=== PATIENT | female | born 1985 | race Asian ===

== ENCOUNTER 2018-08-04 19:56 | Emergency (ER) | payer OTHER ==
[2018-08-04 20:09] VITALS: BP 110/72; TEMP 98.1
[2018-08-04 21:39] LABS: COLLECTION METHOD CLEAN CATCH
[2018-08-04 21:50] LABS: MUCOUS Present /lpf; PH 6 (5-8); URINE APPEARANCE Clear; URINE BACTERIA None Seen /hpf; URINE BILIRUBIN Negative (NEGATIVE); URINE BLOOD Negative (NEGATIVE); URINE COLOR Yellow; URINE GLUCOSE Negative (NEGATIVE); URINE KETONE Negative (NEGATIVE); URINE LEUKOCYTE ESTERASE Negative (NEGATIVE); URINE NITRATE Negative (NEGATIVE); URINE PROTEIN(semi-quant) Negative (NEGATIVE); URINE RBC None Seen /hpf; URINE UROBILINOGEN Negative (NEGATIVE)
[2018-08-04 22:28] LABS: BASO % 0.7 % (0.0-2.0); EOS # 0.4 (0.0-0.7); EOS % 6.8 % (0-4.0); GRAN # 2.2 (1.4-6.5); GRAN % 38.5 % (42.2-75.2); HEMATOCRIT 34.8 % (37.0-47.0); HEMOGLOBIN 10.9 g/dl (12.5-16.0); LYMPH # 2.6 (1.2-3.4); LYMPH % 44.4 % (20.0-51.0); MEAN CELL VOLUME 81 fl (80.0-100.0); MEAN CORPUSCULAR HEMOGLOBIN 25 pg (27.0-31.0); MEAN CORPUSCULAR HGB CONC 31 g/dl (33.0-37.0); MEAN PLATELET VOLUME 9.9 fl (7.4-10.4); MONO # 0.5 (0.1-0.6); MONO % 9.4 % (1.7-9.3); PLATELET COUNT 267 K/mm3 (130-400); RED BLOOD COUNT 4.29 M/mm3 (4.10-5.30)
[2018-08-04 22:42] LABS: ALANINE AMINOTRANSFERASE 16 U/L (9-52); ALKALINE PHOSPHATASE 80 U/L (50-136); ANION GAP 8 mmol/L (7-16); AST,SGOT 25 U/L (15-37); BILIRUBIN,TOTAL 0.1 mg/dL (0.0-1.0); BLOOD UREA NITROGEN 18 mg/dL (7-17); C-REACTIVE PROTEIN < 0.5 mg/dL (0.0-0.9); CALCIUM 9.2 mg/dL (8.4-10.2); CARBON DIOXIDE 27 mmol/L (22-30); CHLORIDE 104 mmol/L (98-107); CREATININE, serum 0.62 (0.52-1.25); GLUCOSE 91 mg/dL (74-106); POTASSIUM 4.4 mmol/L (3.4-5.0); SODIUM 139 mmol/L (137-145); TOTAL PROTEIN 7.6 gm/dL (6.4-8.2)
[2018-08-05 02:58] VITALS: PULSE 91
[2018-08-08] MEDS ORDERED: FERRO-TIME325 MG (14:48)
== END 2018-08-05 | disposition home or self-care (01) ==
LOC: COL.ER 19:56
PROVIDERS: Nurse Practitioner
DX: R10.30 Lower abdominal pain, unspecified (principal); N89.8 Other specified noninflammatory disorders of vagina; Z98.890 Other specified postprocedural states
CPT/HCPCS: A4216; J0696; J7030

== ENCOUNTER → 2018-08-08 | Emergency (ER) | payer OTHER ==
[~2018-08-08] VITALS: Ht 116 cm; Wt 49.0 kg
[~2018-08-08] MED LIST: FERRO-TIME325 MG
[2018-08-08 12:58] VITALS: BP 109/60; TEMP 97.3
[2018-08-08 14:11] LABS: COLLECTION METHOD CLEAN CATCH
[2018-08-08 14:17] LABS: PH 7 (5-8); SQUAMOUS EPITHELIAL None Seen /hpf; URINE APPEARANCE Clear; URINE BACTERIA None Seen /hpf; URINE BILIRUBIN Negative (NEGATIVE); URINE BLOOD Negative (NEGATIVE); URINE COLOR Straw; URINE GLUCOSE Negative (NEGATIVE); URINE KETONE Negative (NEGATIVE); URINE LEUKOCYTE ESTERASE Negative (NEGATIVE); URINE NITRATE Negative (NEGATIVE); URINE PROTEIN(semi-quant) Negative (NEGATIVE); URINE RBC 0-2 /hpf; URINE UROBILINOGEN Negative (NEGATIVE)
[2018-08-08 14:39] LABS: BASO # 0.1 (0.0-0.2); EOS # 0.4 (0.0-0.7); EOS % 6.1 % (0-4.0); GRAN # 3.2 (1.4-6.5); GRAN % 50.4 % (42.2-75.2); HEMATOCRIT 38.5 % (37.0-47.0); LYMPH # 2.2 (1.2-3.4); LYMPH % 35.3 % (20.0-51.0); MEAN CELL VOLUME 81 fl (80.0-100.0); MEAN CORPUSCULAR HEMOGLOBIN 25 pg (27.0-31.0); MEAN CORPUSCULAR HGB CONC 31 g/dl (33.0-37.0); MEAN PLATELET VOLUME 9.8 fl (7.4-10.4); MONO # 0.4 (0.1-0.6); PLATELET COUNT 314 K/mm3 (130-400); RED BLOOD COUNT 4.77 M/mm3 (4.10-5.30); REDCELL DISTRIBUTION WIDTH-CV 14.8 % (11.5-14.5)
[2018-08-08 14:54] LABS: ALANINE AMINOTRANSFERASE 10 U/L (9-52); ALBUMIN 4.5 gm/dL (3.5-5.0); ALKALINE PHOSPHATASE 84 U/L (50-136); ANION GAP 9 mmol/L (7-16); AST,SGOT 24 U/L (15-37); BILIRUBIN,TOTAL 0.2 mg/dL (0.0-1.0); BLOOD UREA NITROGEN 15 mg/dL (7-17); CALCIUM 9.6 mg/dL (8.4-10.2); CARBON DIOXIDE 30 mmol/L (22-30); CHLORIDE 101 mmol/L (98-107); CREATININE, serum 0.69 (0.52-1.25); GLUCOSE 101 mg/dL (74-106); POTASSIUM 5.3 mmol/L (3.4-5.0); SODIUM 140 mmol/L (137-145); TOTAL PROTEIN 8.3 gm/dL (6.4-8.2)
[2018-08-08 15:08] LABS: C-REACTIVE PROTEIN < 0.5 mg/dL (0.0-0.9)
[2018-08-08 16:00] VITALS: PULSE 84
== END ==
LOC: COL.ER 12:38
PROVIDERS: Nurse Practitioner Primary Care
DX: R10.31 Right lower quadrant pain (principal)

== ENCOUNTER 2019-01-23 13:05 | Emergency (ER) | payer OTHER ==
[~2019-01-23] VITALS: Ht 160 cm; Wt 50.0 kg
[2019-01-23 13:26] VITALS: TEMP 98.4
[2019-01-23 16:30] LABS: BASO % 0.4 % (0.0-2.0); EOS # 0.1 (0.0-0.7); EOS % 1.1 % (0-4.0); GRAN % 69.8 % (42.2-75.2); HEMOGLOBIN 10.6 g/dl (12.5-16.0); LYMPH # 1.6 (1.2-3.4); MEAN CELL VOLUME 77 fl (80.0-100.0); MEAN CORPUSCULAR HEMOGLOBIN 24 pg (27.0-31.0); MEAN CORPUSCULAR HGB CONC 32 g/dl (33.0-37.0); MEAN PLATELET VOLUME 10.6 fl (7.4-10.4); MONO # 0.5 (0.1-0.6); MONO % 6.3 % (1.7-9.3); PLATELET COUNT 253 K/mm3 (130-400); RED BLOOD COUNT 4.36 M/mm3 (4.10-5.30); REDCELL DISTRIBUTION WIDTH-CV 14.3 % (11.5-14.5)
[2019-01-23 16:31] LABS: HEMATOCRIT 33.7 % (37.0-47.0)
[2019-01-23 17:43] LABS: COLLECTION METHOD CLEAN CATCH
[2019-01-23 17:51] LABS: MUCOUS Present /lpf; PH 5 (5-8); URINE APPEARANCE Clear; URINE BACTERIA None Seen /hpf; URINE BILIRUBIN Negative (NEGATIVE); URINE BLOOD 1+ (NEGATIVE); URINE COLOR Yellow; URINE GLUCOSE Negative (NEGATIVE); URINE KETONE Trace (NEGATIVE); URINE LEUKOCYTE ESTERASE Negative (NEGATIVE); URINE NITRATE Negative (NEGATIVE); URINE PROTEIN(semi-quant) Negative (NEGATIVE); URINE RBC 0-2 /hpf; URINE UROBILINOGEN Negative (NEGATIVE)
[2019-01-23 19:00] VITALS: BP 108/60; PULSE 74
== END 2019-01-23 19:34 | disposition home or self-care (01) ==
LOC: COL.ER 13:05
PROVIDERS: Physician Assistant
DX: O26.891 Other specified pregnancy related conditions, first trimester (principal); R10.2 Pelvic and perineal pain; Z3A.13 13 weeks gestation of pregnancy; Z98.890 Other specified postprocedural states

== ENCOUNTER 2019-01-25 17:29 | Outpatient (CLI) | payer OTHER ==
[~2019-01-25] VITALS: Ht 157.5 cm; Wt 50.0 kg
[2019-01-25] VITALS (8 sets, daily range): BP systolic 104–141; BP diastolic 48–75; PULSE 76–95; TEMP 97.5–97.6
--- NOTE | 2019-01-25 17:45 | NUR ---
Patient to room and changed into gown. Patient very tearful, tissues provided. Patient speaks limited danish, but acknowledges and responds to questions. Waiting for to translate.
--- NOTE | 2019-01-25 20:00 | NUR ---
PT TO ROOM VIA BED FOLLOWING D&C, VS STABLE, BLEEDING WNL, PT A&O X3.
--- NOTE | 2019-01-25 22:30 | NUR ---
Pt up to the bathroom with stand-by assist and without complications. Pt was able to void 300ml. Krystal-care done.
--- NOTE | 2019-01-25 23:00 | NUR ---
Discharge instructions and medications reviewed with pt via coat joiner lockstitch. Pt verbalized an understanding, agrees with the plan and states no questions or concerns at this time. Pt waiting for for ride home.
--- NOTE | 2019-01-25 23:30 | NUR ---
Pt still waiting for ride home.
--- NOTE | 2019-01-26 | NUR ---
Pt unable to get a hold of her for transportation home. Pt requesting to stay until morning.
--- NOTE | 2019-01-26 06:05 | NUR ---
Pt discharge home ambulatory and escorted off unit by staff. Pt home via private vehicle. Discharge information reviewed and pt states no questions or concerns at this time.
== END 2019-01-26 06:05 | disposition home or self-care (01) ==
LOC: LDRO 17:29 → OB 17:34 → LDRO 01-26 06:05 → OB 01-26 06:05
DX: O03.9 Complete or unspecified spontaneous abortion without complication (principal); O99.89 Other specified diseases and conditions complicating pregnancy, childbirth and the puerperium; N89.8 Other specified noninflammatory disorders of vagina; R10.30 Lower abdominal pain, unspecified
CPT/HCPCS: OP; J2405; J2704; J3010; J7120

== ENCOUNTER 2019-03-01 19:37 | Emergency (ER) | payer OTHER ==
[~2019-03-01] VITALS: Ht 63 cm; Wt 47.3 kg
[2019-03-01 19:58] VITALS: TEMP 100.5
[2019-03-01] MEDS ORDERED: AMOXICILLIN 8751 TAB PO (20:26)
[2019-03-01 21:08] VITALS: BP 103/70; PULSE 80
== END 2019-03-01 21:15 | disposition home or self-care (01) ==
LOC: COL.ER 19:37
DX: K04.7 Periapical abscess without sinus (principal)

== ENCOUNTER 2019-03-19 22:20 | Emergency (ER) | payer OTHER ==
[~2019-03-19] VITALS: Ht 160 cm; Wt 54.5 kg
[~2019-03-19 22:20] MED LIST changes: +AMOXICILLIN 8751 TAB PO
[2019-03-19 22:22] VITALS: BP 115/78; TEMP 98.1
[2019-03-19 23:15] VITALS: PULSE 89
== END 2019-03-19 23:15 | disposition home or self-care (01) ==
LOC: COL.ER 22:20
DX: S80.01XA Contusion of right knee, initial encounter (principal); S00.31XA Abrasion of nose, initial encounter; Z98.890 Other specified postprocedural states; V43.62XA Car passenger injured in collision with other type car in traffic accident, initial encounter

== ENCOUNTER 2019-03-27 13:40 | Emergency (ER) | payer OTHER ==
[~2019-03-27] VITALS: Ht 160 cm; Wt 50.7 kg
[2019-03-27 14:04] VITALS: BP 112/65; PULSE 72; TEMP 98.4
[2019-03-27 14:24] LABS: COLLECTION METHOD CLEAN CATCH
[2019-03-27 14:32] LABS: MUCOUS Present /lpf; PH 6 (5-8); SQUAMOUS EPITHELIAL 0-2 /hpf; URINE APPEARANCE Clear; URINE BACTERIA None Seen /hpf; URINE BILIRUBIN Negative (NEGATIVE); URINE BLOOD Negative (NEGATIVE); URINE COLOR Yellow; URINE GLUCOSE Negative (NEGATIVE); URINE KETONE Negative (NEGATIVE); URINE LEUKOCYTE ESTERASE Negative (NEGATIVE); URINE NITRATE Negative (NEGATIVE); URINE PROTEIN(semi-quant) Negative (NEGATIVE); URINE RBC 0-2 /hpf; URINE UROBILINOGEN Negative (NEGATIVE)
== END 2019-03-27 16:03 | disposition left against medical advice (07) ==
LOC: COL.ER 13:40
PROVIDERS: Emergency Medicine
DX: R10.30 Lower abdominal pain, unspecified (principal)

== ENCOUNTER 2019-03-30 21:57 | Emergency (ER) | payer OTHER ==
[~2019-03-30] VITALS: Ht 157.5 cm; Wt 52.7 kg
[2019-03-30 22:10] VITALS: BP 103/58; TEMP 99.2
[2019-03-30 23:13] VITALS: PULSE 69
== END 2019-03-30 23:12 | disposition home or self-care (01) ==
LOC: COL.ER 21:57
DX: N92.6 Irregular menstruation, unspecified (principal)